=== PATIENT | male | born 1945 | race Caucasian/White ===

== ENCOUNTER → 2017-05-08 | Day surgery (SDC) | payer MEDICARE, BC ==
[~2017-05-08] VITALS: Ht 170.2 cm; Wt 109.7 kg
[~2017-05-08] MED LIST: BETAPACE (GENER80 MG PO; CLARITIN10 MG PO; COZAAR100 MG PO; HYDRODIURIL25 MG PO; LIPITOR20 M1 PO; LOPRESSOR25 MG PO; MULTI VITAMIN1 EACH PO; PRADAXA150 MG PO; RYTHMOL150 M1 PO; RYTHMOL225 M1 PO; SAVAYSA60 MG PO; VALTREX1000 MG PO
--- NOTE | ~2017-05-08 | OR ---
PATIENT'S NAME: CHRIS GARNER [facility] AGE: 71 Y [address] ROOM: [place] [address] LOCATION: [facility] [place] DATE: 05/08/2017 OR/Procedure Report DISCHARGE DATE: FAMILY PHYSICIAN: KATE JEONG MD ATTENDING PHYSICIAN: Lissa Pineda SURGEON: Lissa Pineda MD FORESTRY WORKER: DATE OF PROCEDURE: 05/08/2017 PRIMARY CARE DOCTOR: Dr. Long. INDICATIONS: Atrial fibrillation refractory to antiarrhythmic drug therapy. DESCRIPTION OF PROCEDURE: Mr. Garner was brought to the preoperative area in a fasting state. Prepped and draped in a normal manner. Patches were placed in AP dimension. Subsequently 120 mg of propofol was administered through the nurse chemical plant manager. Once adequate levels of sedation were obtained, 200 joules of synchronized therapy was delivered with prompt latter-day of sinus rhythm and sinus bradycardia. CONCLUSION: 1. Successful latter-day of normal sinus rhythm using DC cardioversion. 2. 12-lead EKG is pending at the time this dictation. 3. The patient will continue antiarrhythmic drug therapy as well as long- term anticoagulation. I would like to thank Dr. Long for the opportunity to participate in the care of Mr. Garner. LISSA PINEDA MD DJM/modl /[id number] d: 05/28/17 1042 t: 06/01/17 0913, OPERATIVE SUMMARY
== END | disposition disaster alternative care site (69) ==
LOC: GPOC 05-07 13:00 → GSDC 08:16 → GPOC 09:00 → EDSTATUS 09:00 → GPOC 13:00
PROC: 5A2204Z Restoration of Cardiac Rhythm, Single (ICD-10-PCS; principal; 2017-05-08)
DX: I48.1 Persistent atrial fibrillation (principal); I10 Essential (primary) hypertension; E78.5 Hyperlipidemia, unspecified; M19.90 Unspecified osteoarthritis, unspecified site; F17.220 Nicotine dependence, chewing tobacco, uncomplicated; E66.9 Obesity, unspecified; Z68.39 Body mass index [BMI] 39.0-39.9, adult; Z98.41 Cataract extraction status, right eye; Z79.01 Long term (current) use of anticoagulants; Z98.890 Other specified postprocedural states
CPT/HCPCS: J2001; J7030

== ENCOUNTER → 2017-06-13 | Outpatient (CLI) | payer MEDICARE, BC ==
--- NOTE | ~2017-06-13 | ENPV ---
Vascular Lower Extremities Venous Insufficiency and Lower Extremities DVT Study Procedure Demographics Patient Name CHRIS GARNER Date of Study 06/13/2017 Patient Number [id number] Gender Male Date of 1945 Age 71 Visit Number [id number] Height Accession Number [id number] Weight Room Number BSA BMI Referring Coral Curtis MD Interpreting Escobar Dinero MD Physician Lluvia Guzmán Physician Physician Ordering Physician Coral Curtis MD Tape Deck Installer Pastry Sous Chef Nathaniel Mercado, T Conclusions Summary No evidence of deep vein thrombosis or superficial thrombus in bilateral lower extremities. Significant deep vein insufficiency in bilateral popliteal veins. Mild venous insufficiency is noted in bilateral greater saphenous veins. Procedure Type of Study: Veins:Lower Extremities Venous Insufficiency, Venous Duplex Pre Intervention NH, Lower Extremities DVT Study, Venous Duplex Lower Extremity Bilateral. Indications for Study:Bilateral lower extremity edema. Additional Indications:Bilateral lower extremity pain/edema Appropriate Use Criteria:5 Patient Status:Routine. Study Location:[facility]. Technical Quality:Adequate visualization. Velocities are measured in cm/s ; Diameters are measured in cm Right Doppler Measurements and Mapping + +------+------+ +-------+ + !Location !Signal!Reflux!Reflux (sec)!AP Diam!Trans Diam ! + +------+------+ +-------+ + !Sapheno Femoral Junction ! !No ! !0.54 !0.69 ! + +------+------+ +-------+ + !GSV High Thigh ! !Yes !0.11 !0.54 !0.61 ! + +------+------+ +-------+ + !GSV Mid Thigh ! !Yes !0.08 !0.53 !0.53 ! + +------+------+ +-------+ + !GSV Low Thigh ! !Yes !0.54 !0.39 !0.46 ! + +------+------+ +-------+ + !GSV Knee ! !No ! !0.38 !0.4 ! + +------+------+ +-------+ + !GSV High Calf ! !Yes !0.5 !0.42 !0.45 ! + +------+------+ +-------+ + !GSV Mid Calf ! !Yes !0.13 !0.27 !0.23 ! + +------+------+ +-------+ + !GSV Low Calf ! !Yes !0.07 !0.28 !0.31 ! + +------+------+ +-------+ + !SSV High Calf ! !No ! !0.35 !0.44 ! + +------+------+ +-------+ + !SSV Mid Calf ! !No ! !0.29 !0.32 ! + +------+------+ +-------+ + !SSV Low Calf ! !No !0.3 !0.27 !0.36 ! + +------+------+ +-------+ + Left Doppler Measurements and Mapping + +------+------+ +-------+ + !Location !Signal!Reflux!Reflux (sec)!AP Diam!Trans Diam ! + +------+------+ +-------+ + !Sapheno Femoral Junction ! !No ! !0.5 !0.45 ! + +------+------+ +-------+ + !GSV High Thigh ! !No ! !0.39 !0.59 ! + +------+------+ +-------+ + !GSV Mid Thigh ! !No ! !0.38 !0.39 ! + +------+------+ +-------+ + !GSV Low Thigh ! !No ! !0.44 !0.38 ! + +------+------+ +-------+ + !GSV Knee ! !Yes !0.43 !0.52 !0.48 ! + +------+------+ +-------+ + !GSV High Calf ! !No ! !0.4 !0.45 ! + +------+------+ +-------+ + !GSV Mid Calf ! !Yes !0.35 !0.3 !0.34 ! + +------+------+ +-------+ + !GSV Low Calf ! !No ! !0.38 !0.36 ! + +------+------+ +-------+ + !SSV High Calf ! !No ! !0.34 !0.38 ! + +------+------+ +-------+ + !SSV Mid Calf ! !No ! !0.34 !0.41 ! + +------+------+ +-------+ + !SSV Low Calf ! !Yes !0.12 !0.27 !0.36 ! + +------+------+ +-------+ + Velocities are measured in cm/s ; Diameters are measured in cm Right Lower Extremities DVT Study Measurements Right 2D and Doppler Measurements + + + + +------+------+ + !Location !Visualized!Compressibility!Thrombosis!Signal!Reflux!Reflux ! ! ! ! ! ! ! !(sec) ! + + + + +------+------+ + !GSV Thigh !Yes !Yes !None !Phasic!No ! ! + + + + +------+------+ + !Common !Yes !Yes !None !Phasic!No ! ! !Femoral ! ! ! ! ! ! ! + + + + +------+------+ + !Prox !Yes !Yes !None !Phasic!Yes !0.06 ! !Femoral ! ! ! ! ! ! ! + + + + +------+------+ + !Mid Femoral!Yes !Yes !None ! ! ! ! + + + + +------+------+ + !Dist !Yes !Yes !None !Phasic!Yes !0.21 ! !Femoral ! ! ! ! ! ! ! + + + + +------+------+ + !Popliteal !Yes !Yes !None !Phasic!Yes !0.86 ! + + + + +------+------+ + !Gastroc !Yes !Yes !None ! ! ! ! + + + + +------+------+ + !PTV !Yes !Yes !None ! ! ! ! + + + + +------+------+ + !Peroneal !Yes !Yes !None ! ! ! ! + + + + +------+------+ + Left Lower Extremities DVT Study Measurements Left 2D and Doppler Measurements + + + + +------+------+ + !Location !Visualized!Compressibility!Thrombosis!Signal!Reflux!Reflux ! ! ! ! ! ! ! !(sec) ! + + + + +------+------+ + !GSV Thigh !Yes !Yes !None !Phasic!No ! ! + + + + +------+------+ + !Common !Yes !Yes !None !Phasic!No ! ! !Femoral ! ! ! ! ! ! ! + + + + +------+------+ + !Prox !Yes !Yes !None !Phasic!No ! ! !Femoral ! ! ! ! ! ! ! + + + + +------+------+ + !Mid Femoral!Yes !Yes !None ! ! ! ! + + + + +------+------+ + !Dist !Yes !Yes !None !Phasic!Yes !0.35 ! !Femoral ! ! ! ! ! ! ! + + + + +------+------+ + !Popliteal !Yes !Yes !None !Phasic!Yes !0.93 ! + + + + +------+------+ + !Gastroc !Yes !Yes !None ! ! ! ! + + + + +------+------+ + !PTV !Yes !Yes !None ! ! ! ! + + + + +------+------+ + !Peroneal !Yes !Yes !None ! ! ! ! + + + + +------+------+ + Signature dtt: CHERRI LOYOLA dtd: 06/13/17 1249 Physician Self Roselyn
== END | disposition disaster alternative care site (69) ==
LOC: GCAR 12:28
DX: I87.2 Venous insufficiency (chronic) (peripheral) (principal)